=== PATIENT | male | born 1995 | race African-American/Black ===

== ENCOUNTER 2025-03-05 22:28 | Emergency (ER) | payer MEDICAID ==
[~2025-03-05] VITALS: Ht 180.3 cm; Wt 75.4 kg
[2025-03-05 22:30] VITALS: O2SAT 100
[2025-03-06 01:15] VITALS: BP 106/53; PULSE 59; RESP 15; TEMP 36.7; O2SAT 100
== END 2025-03-06 01:15 | disposition home or self-care (01) ==
LOC: ER 22:28
DX: S93.502A Unspecified sprain of left great toe, initial encounter (principal); R42 Dizziness and giddiness; X58.XXXA Exposure to other specified factors, initial encounter; Y93.89 Activity, other specified; Y92.89 Other specified places as the place of occurrence of the external cause; Y99.8 Other external cause status
CPT/HCPCS: 73660; 99283

== ENCOUNTER 2025-03-22 15:08 | Emergency (ER) | payer MEDICAID ==
[~2025-03-22] VITALS: Ht 182.9 cm; Wt 65.0 kg
[2025-03-22 15:16] VITALS: BP 112/64; PULSE 95; RESP 16; TEMP 36.8; O2SAT 98
== END 2025-03-22 16:00 | disposition left against medical advice (07) ==
LOC: ER 15:08
DX: F23 Brief psychotic disorder (principal)
CPT/HCPCS: 99283